=== PATIENT | male | born 1990 ===

== ENCOUNTER 2021-02-09 15:28 | Emergency (ER) | payer OTHER ==
[~2021-02-09] VITALS: Ht 175.3 cm; Wt 64.0 kg
[2021-02-09] MEDS ORDERED: DISCOVISC DISP S1 ML (16:07)
[2021-02-09] MEDS ORDERED: SULFAMETHOXAZO1 EACH (16:07)
[2021-02-09] MEDS ORDERED: PHENAZOPYRIDIN200 MG (16:07)
[2021-02-09] MEDS ORDERED: TIVICAY50 MG (16:08)
[2021-02-10] MEDS ORDERED: CIPRO500 MG PO (12:39)
[2021-02-10] MEDS ORDERED: KETO10TA2 PO (12:39)
== END 2021-02-10 13:34 | disposition home or self-care (01) ==
LOC: ER 15:28
DX: N45.1 Epididymitis (principal); N39.0 Urinary tract infection, site not specified